=== PATIENT | female | born 1950 | race Caucasian/White ===

== ENCOUNTER 2017-11-17 09:27 | Inpatient (IN) | payer OTHER, MEDICARE, BC ==
[~2017-11-17 09:27] MED LIST: CEFAZOLIN 1 GM INJ
[2017-11-17] MEDS ORDERED: PROPOFOL 20 ML (11:48)
[2017-11-17] MEDS ORDERED: ROCURONIUM 50 MG INJ ×3 (11:48→15:27)
[2017-11-17] MEDS ORDERED: MEPERIDINE 100 MG INJ (11:48)
[2017-11-17] MEDS ORDERED: SUCCINYLCHOLINE CHLORIDE 100 MG/5 ML SYG IV (11:48)
[2017-11-17] MEDS ORDERED: NEOSTIGMINE 3 MG/3 ML SYRINGE (11:48)
[2017-11-17] MEDS ORDERED: LIDOCAINE 2% (SDV) 5 ML INJ (11:48)
[2017-11-17] MEDS ORDERED: GLYCOPYRROLATE 0.4 MG INJ (11:48)
[2017-11-17] MEDS: BUPIVACAINE 0.25%/EPI (MDV) 50 ML VIAL INJ (13:16)
[2017-11-17] MEDS: CA CHLORIDE 10% 10 ML SYRINGE (13:16)
[2017-11-17] MEDS: SURGIFOAM POWDER 1 GM KIT (13:17)
[2017-11-17] MEDS: HEPARIN 1000 UNITS/ML 10 ML INJ ×2 (13:17→13:18)
[2017-11-17] MEDS: CEFAZOLIN 1 GM INJ (13:17)
[2017-11-17] MEDS: THROMBIN 5000 UNIT VIAL (13:18)
[2017-11-17] MEDS ORDERED: ONDANSETRON 4 MG INJ (13:48)
[2017-11-17] MEDS ORDERED: METOCLOPRAMIDE 10 MG INJ (13:48)
[2017-11-17] MEDS ORDERED: OXYCODONE/ACETAMINOPHEN (5/325) TAB PO ×2 (14:30)
[2017-11-17] MEDS ORDERED: MEPERIDINE 25 MG INJ IV (14:30)
[2017-11-17] MEDS ORDERED: EPHEDrine SULFATE 50 MG/5 ML SYG IV (14:30)
[2017-11-17] MEDS ORDERED: MIDAZOLAM 1 MG/ML 2 ML INJ IV (14:30)
[2017-11-17] MEDS ORDERED: FENTAnyl 50 MCG/ML VIAL IV ×3 (14:30)
[2017-11-17] MEDS ORDERED: METOCLOPRAMIDE 10 MG INJ IV (14:30)
[2017-11-17] MEDS ORDERED: HYDROmorphONE 1 MG/5 ML IV SYRINGE IV ×2 (14:30)
[2017-11-17] MEDS ORDERED: DIPHENHYDRAMINE 50 MG INJ IV (14:30)
[2017-11-17] MEDS ORDERED: LABETALOL HCL 20MG INJ IV (14:30)
[2017-11-17] MEDS ORDERED: EPHEDrine 25 MG/5 ML SYG (15:11)
[2017-11-17] MEDS: BUPIVACAINE 0.25% (MPF) 30 ML INJ (16:40)
[2017-11-17] MEDS: ONDANSETRON 4 MG INJ IV ×2 (17:15→20:24)
[2017-11-17] MEDS: HYDROmorphONE 1 MG/5 ML IV SYRINGE IV ×2 (17:15→17:31)
[2017-11-17] MEDS ORDERED: AL HYDROX/MG HYDROX/SIMETH 30 ML CUP PO (17:30)
[2017-11-17] MEDS ORDERED: CEFAZOLIN 1 GM/50 ML (PMX) 50 ML IVPB (17:30)
[2017-11-17] MEDS ORDERED: BISACODYL 10 MG SUPP PR (17:30)
[2017-11-17] MEDS ORDERED: NALOXONE (0.4 MG/ML) INJ IV (17:30)
[2017-11-17] MEDS ORDERED: ACETAMINOPHEN 325 MG TAB PO (17:30)
[2017-11-17] MEDS: HYDROmorphONE 0.2 MG/ML PCA IV (17:51)
[2017-11-17] MEDS: hydrALAzine 20 MG INJ IV (18:04)
[2017-11-17] MEDS: GABAPENTIN 300 MG CAP PO (21:16)
[2017-11-17] MEDS: DULOXETINE 30 MG CAP DR PO (21:16)
[2017-11-17] MEDS: DOCUSATE SODIUM 100 MG CAP PO (21:16)
[2017-11-17] MEDS: D5W-0.45 NACL + KCL 20 MEQ 1,000 ML IV (21:17)
[2017-11-17] MEDS: CEFAZOLIN 1 GM/50 ML (PMX) 50 ML IVPB (21:17)
[2017-11-18] MEDS: HYDROmorphONE 0.2 MG/ML PCA IV ×3 (00:44→22:54)
[2017-11-18] MEDS: DIPHENHYDRAMINE 50 MG INJ IV ×2 (02:48→12:09)
[2017-11-18] MEDS: ONDANSETRON 4 MG INJ IV (02:48)
[2017-11-18] MEDS: CEPASTAT LOZENGE MT (02:52)
[2017-11-18] MEDS: D5W-0.45 NACL + KCL 20 MEQ 1,000 ML IV ×3 (03:02→23:02)
[2017-11-18 05:16] LABS: ADD MAN DIFF? NO
[2017-11-18 05:22] LABS: BASOPHILS % 0.3 % (0.0-2.0); EOSINOPHILS % 0.4 % (0.0-7.0); HEMOGLOBIN 12.6 g/dl (12.0-16.0); LYMPHOCYTES # 1.2 10^3/ul (0.8-2.9); LYMPHOCYTES % 11.8 % (15.0-51.0); MEAN CORPUSCULAR HEMOGLOBIN 31.3 pg (29.0-33.0); MEAN CORPUSCULAR HGB CONC 32.3 g/dl (32.0-37.0); MEAN PLATELET VOLUME 10.4 fl (7.4-10.4); NEUTROPHILS % 77.2 % (39.0-77.0); PLATELET COUNT 286 10^3/UL (140-415); RED BLOOD COUNT 4.02 10^6/ul (4.20-5.40); RED CELL DISTRIBUTION WIDTH 12.9 % (11.5-14.5)
[2017-11-18 05:22] LABS: WHITE BLOOD COUNT 10.4 10^3/ul (4.8-10.8)
[2017-11-18 05:42] LABS: ANION GAP 9 (8-16)
[2017-11-18 05:46] LABS: BLOOD UREA NITROGEN 12 mg/dl (7-20); CALCIUM 8.3 mg/dl (8.4-10.2); CARBON DIOXIDE 29 mmol/L (21-31); CHLORIDE 107 mmol/L (97-110); CREATININE 0.76 mg/dl (0.44-1.00); GLUCOSE 115 mg/dl (70-220); MAGNESIUM 1.9 mg/dl (1.7-2.5); POTASSIUM 4.4 mmol/L (3.5-5.1); SODIUM 141 mmol/L (135-144)
[2017-11-18] MEDS: CEFAZOLIN 1 GM/50 ML (PMX) 50 ML IVPB ×2 (06:04→12:09)
[2017-11-18] MEDS: PANTOPRAZOLE 40 MG INJ IV (06:05)
[2017-11-18] MEDS: DOCUSATE SODIUM 100 MG CAP PO ×2 (08:56→20:57)
[2017-11-18] MEDS: DULOXETINE 30 MG CAP DR PO (20:57)
[2017-11-18] MEDS: GABAPENTIN 300 MG CAP PO (20:57)
[2017-11-18] MEDS: DIPHENHYDRAMINE 25 MG CAP PO (21:02)
[2017-11-19 05:41] LABS: ADD MAN DIFF? NO
[2017-11-19 05:43] LABS: WHITE BLOOD COUNT 10.4 10^3/ul (4.8-10.8)
[2017-11-19 05:43] LABS: BASOPHILS % 0.3 % (0.0-2.0); EOSINOPHILS # 0.1 10^3/ul (0.0-0.5); EOSINOPHILS % 1.3 % (0.0-7.0); HEMATOCRIT 35.5 % (37.0-47.0); HEMOGLOBIN 11.6 g/dl (12.0-16.0); LYMPHOCYTES # 1.1 10^3/ul (0.8-2.9); LYMPHOCYTES % 10.3 % (15.0-51.0); MEAN CORPUSCULAR HGB CONC 32.7 g/dl (32.0-37.0); MEAN CORPUSCULAR VOLUME 98.1 fl (82.0-101.0); MEAN PLATELET VOLUME 10.4 fl (7.4-10.4); MONOCYTES % 9.7 % (0.0-11.0); NEUTROPHIL # 8.1 10^3/ul (1.6-7.5); NEUTROPHILS % 77.5 % (39.0-77.0); PLATELET COUNT 252 10^3/UL (140-415); RED BLOOD COUNT 3.62 10^6/ul (4.20-5.40); RED CELL DISTRIBUTION WIDTH 12.9 % (11.5-14.5)
[2017-11-19] MEDS: PANTOPRAZOLE 40 MG INJ IV (05:59)
[2017-11-19 06:08] LABS: ANION GAP 9 (8-16); BLOOD UREA NITROGEN 8 mg/dl (7-20); CALCIUM 8.4 mg/dl (8.4-10.2); CARBON DIOXIDE 28 mmol/L (21-31); CHLORIDE 102 mmol/L (97-110); CREATININE 0.68 mg/dl (0.44-1.00); GLUCOSE 111 mg/dl (70-220); MAGNESIUM 1.8 mg/dl (1.7-2.5); POTASSIUM 4.2 mmol/L (3.5-5.1); SODIUM 135 mmol/L (135-144)
[2017-11-19] MEDS: DOCUSATE SODIUM 100 MG CAP PO ×2 (08:26→20:31)
[2017-11-19] MEDS: D5W-0.45 NACL + KCL 20 MEQ 1,000 ML IV ×2 (09:02→19:32)
[2017-11-19] MEDS: ONDANSETRON 4 MG INJ IV (09:40)
[2017-11-19] MEDS: HYDROCODONE/APAP (5/325) TAB PO ×4 (09:44→21:52)
[2017-11-19] MEDS: DIPHENHYDRAMINE 50 MG INJ IV (10:19)
[2017-11-19 16:08] LABS: AADO2 Arterial 68.2 mmHg (7.0-24.0); Allen Test ACCEPTAB; Arterial Base Excess 1.4 mmol/L (-3.0-3); Arterial Blood Gas Oxygen Sat 95.8 mmHG (95.0-98.0); Arterial COHb 0.8 % (0.0-3.0); Arterial Fraction of Oxyhgb 94.9 % (93.0-99.0); Arterial HCO3 26.5 mmol/L (22.0-26.0); Arterial MetHb 0.1 % (0.0-1.5); Arterial Total Hemglobin 12.4 g/dl (12.0-18.0); Arterial pCO2 43.9 mmhg (35-45); MODE NASAL CANNULA; Site Right Radial
[2017-11-19] MEDS: DULOXETINE 30 MG CAP DR PO (20:31)
[2017-11-19] MEDS: GABAPENTIN 300 MG CAP PO (20:31)
[2017-11-20 05:00] LABS: ADD MAN DIFF? NO
[2017-11-20] MEDS: D5W-0.45 NACL + KCL 20 MEQ 1,000 ML IV (05:02)
[2017-11-20 05:03] LABS: WHITE BLOOD COUNT 7.6 10^3/ul (4.8-10.8)
[2017-11-20 05:03] LABS: BASOPHILS % 0.4 % (0.0-2.0); EOSINOPHILS # 0.3 10^3/ul (0.0-0.5); EOSINOPHILS % 3.3 % (0.0-7.0); HEMATOCRIT 33.5 % (37.0-47.0); HEMOGLOBIN 11.1 g/dl (12.0-16.0); LYMPHOCYTES # 1.3 10^3/ul (0.8-2.9); LYMPHOCYTES % 16.8 % (15.0-51.0); MEAN CORPUSCULAR HGB CONC 33.1 g/dl (32.0-37.0); MEAN CORPUSCULAR VOLUME 96.5 fl (82.0-101.0); MEAN PLATELET VOLUME 10.5 fl (7.4-10.4); MONOCYTE # 0.9 10^3/ul (0.3-0.9); MONOCYTES % 12.1 % (0.0-11.0); NEUTROPHIL # 5.1 10^3/ul (1.6-7.5); NEUTROPHILS % 67.1 % (39.0-77.0); PLATELET COUNT 246 10^3/UL (140-415); RED BLOOD COUNT 3.47 10^6/ul (4.20-5.40); RED CELL DISTRIBUTION WIDTH 12.5 % (11.5-14.5)
[2017-11-20 05:27] LABS: ANION GAP 7 (8-16); BLOOD UREA NITROGEN 9 mg/dl (7-20); CALCIUM 8.7 mg/dl (8.4-10.2); CARBON DIOXIDE 31 mmol/L (21-31); CHLORIDE 103 mmol/L (97-110); CREATININE 0.62 mg/dl (0.44-1.00); GLUCOSE 101 mg/dl (70-220); MAGNESIUM 1.9 mg/dl (1.7-2.5); POTASSIUM 4.3 mmol/L (3.5-5.1); SODIUM 137 mmol/L (135-144)
[2017-11-20] MEDS: PANTOPRAZOLE 40 MG INJ IV (05:40)
[2017-11-20] MEDS: HYDROCODONE/APAP (5/325) TAB PO ×2 (05:45→10:20)
[2017-11-20] MEDS: CYCLOBENZAPRINE 10 MG TAB PO (08:12)
[2017-11-20] MEDS: HYDROmorphONE 0.5 MG/0.5 ML SYG IV ×2 (08:12→12:43)
[2017-11-20] MEDS: DOCUSATE SODIUM 100 MG CAP PO (08:12)
== END 2017-11-20 12:55 | disposition home or self-care (01) | DRG 454 ==
LOC: REC 09:27 → MS1 19:35
PROC: 0SG00AJ Fusion of Lumbar Vertebral Joint with Interbody Fusion Device, Posterior Approach, Anterior Column, Open Approach (ICD-10-PCS; principal; 2017-11-17 12:00)
PROC: 0SG0071 Fusion of Lumbar Vertebral Joint with Autologous Tissue Substitute, Posterior Approach, Posterior Column, Open Approach (ICD-10-PCS; 2017-11-17 12:00)
PROC: 0ST20ZZ Resection of Lumbar Vertebral Disc, Open Approach (ICD-10-PCS; 2017-11-17 12:00)
PROC: 07DR3ZZ Extraction of Iliac Bone Marrow, Percutaneous Approach (ICD-10-PCS; 2017-11-17 12:00)
PROC: 4A11X4G Monitoring of Peripheral Nervous Electrical Activity, Intraoperative, External Approach (ICD-10-PCS; 2017-11-17 12:00)
DX: M48.062 Spinal stenosis, lumbar region with neurogenic claudication (principal); J98.11 Atelectasis; M43.16 Spondylolisthesis, lumbar region; M54.16 Radiculopathy, lumbar region; I10 Essential (primary) hypertension; R09.02 Hypoxemia; G62.9 Polyneuropathy, unspecified; L29.8 Other pruritus; T40.695A Adverse effect of other narcotics, initial encounter; Y92.230 Patient room in hospital as the place of occurrence of the external cause
CPT/HCPCS: 36600; 71045; 72110; 80048; 82803; 83735; 85025; 86850; 86900; 86901; 86999; 87086; 88304; 97110; 97116; 97161; 97530